=== PATIENT | male | born 1970 | race Hispanic/Latino ===

== ENCOUNTER 2020-03-23 16:57 | Observation (INO) | payer OTHER, SELFPAY ==
[2020-03-23] VITALS (8 sets, daily range): BP systolic 112–139; BP diastolic 56–82; PULSE 65–75; RESP 18–20; TEMP 36.1–37.1; O2SAT 96–99; BMI 29.7
--- NOTE | ~2020-03-23 | XR_ITS ---
EXAMINATION: XR chest 1V portable EXAM DATE: 03/23/2020 17:27 INDICATION: Left-sided chest pain, nonradiating. TECHNIQUE: Portable AP frontal chest x-ray was obtained. There is no prior study for comparison. FINDINGS: The lungs are clear. There are no pleural effusions. The cardiomediastinal silhouette is within normal limits. There is no pneumothorax suspected. The bones and soft tissues are unremarkab le. IMPRESSION: No acute cardiopulmonary findings. Reviewed, dictated and finalized at location A.
--- NOTE | 2020-03-23 17:05 | ECG_ITS ---
Measurements Intervals [place] Rate: 69 P: 44 VA: 157 QRS: -3 QRSD: 107 T: 12 QT: 359 QTc: 387 Interpretive Statements SINUS RHYTHM LOW QRS VOLTAGE IN PRECORDIAL LEADS INCOMPLETE RIGHT BUNDLE BRANCH BLOCK ST ELEVATION IN ANTEROLAT/HIGH LAT LEADS- PROBABLY EARLY REPOLARIZATION BORDERLINE ECG Electronically Signed On 03-23-2020 19:46:08 CDT by Jeremy Calhoun D.O.
[2020-03-23 17:22] LABS: Basophils Percent Auto 0.5 % (0.2-1.2); Eosinophils Absolute Auto 0.1 K/mm3 (0-0.3); Eosinophils Percent Auto 1.8 % (0-4.4); Hemoglobin 15.7 g/dL (14.0-18.0); Immature Granulocyte Absolute 0.02 K/mm3 (0.00-0.031); Immature Granulocyte Percent A 0.3 % (0-0.5); Lymphocytes Absolute Auto 2.63 K/mm3 (0.9-3.2); Lymphocytes Percent Auto 42.1 % (18.3-44.2); Mean Corpuscular HGB Conc 34.1 g/dl (32-36); Mean Corpuscular Hemoglobin 29.6 pg (26-34); Mean Corpuscular Volume 86.8 fl (80-100); Mean Platelet Volume 9.5 fl (7.4-10.4); Monocytes Absolute Auto 0.5 K/mm3 (0.1-0.6); Monocytes Percent Auto 8.6 % (2.6-8.5); Neutrophils Absolute Auto 2.9 K/mm3 (1.3-6.7); Neutrophils Percent Auto 46.7 % (45.5-73.1); Platelet Count Result 289 k/mm3 (150-375); Red Cell Distribution Width 12.9 % (11.5-14.5); White Blood Count 6.3 K/mm3 (4.5-10.0)
--- NOTE | 2020-03-23 17:26 | ED.CHESTPAIN ---
HPI - Chest Pain General Chief Complaint: Chest Pain Stated Complaint: chest pain Time Seen by Provider: 03/23/20 17:14 Source: RN notes reviewed History of Present Illness HPI narrative: Patient presents emergency department from urgent care for chest pain. Patient states this morning approximately 10 AM he was driving when he developed left-sided chest pain. The pain is described as a tightness and did not radiate associated with shortness of breath. Patient had had the pain continue went to the urgent care was given aspirin. At this time states the pain has resolved. Denies any fevers or chills abdominal pain nausea vomiting or any other symptoms. Denies any previous cardiac history Related Data Allergies Allergy/AdvReac Type Severity Reaction Status Date / Time No Known Allergies Allergy Verified 03/23/20 17:09 Review of Systems Review of Systems: Narrative: Gen.: Denies fevers or chills ENT: Denies congestion Respiratory: Denies shortness of breath or cough CV: See HPI GI: Denies abdominal pain nausea, emesis or diarrhea Musculoskeletal: Denies back pain or muscle pain Neuro: Denies numbness, tingling, weakness or focal weakness Skin: Denies rash Except as documented, all other systems reviewed and negative [facility] Past Medical History Medical History (Updated 03/23/20 @ 17:58 by Frank Price DO) Patient denies significant medical history Social History Social History (Updated 03/23/20 @ 17:27 by Frank Price DO) Smoking status: Never smoker Gender identity (if verbalized by the patient): Male Exam Narrative: Exam Narrative: APPEARANCE: No acute distress, nontoxic, resting in bed EYES: EOMI HEENT: Normocephalic, atraumatic, OMM RESPIRATORY: No respiratory distress Clear to auscultation bilaterally with no rhonchi wheezing or rales. CARDIOVASCULAR: Regular rate and rhythm without murmurs rubs or gallops. ABDOMINAL: Soft, nontender, nondistended, no rebound or guarding MUSCULOSKELETAl: Moves all extremities. No clubbing, cyanosis or edema. NEURO: Awake and alert. Following commands, speech normal, no focal deficits SKIN:: Warm, dry. No rashes lesions or abrasions PSYCHIATRIC: Normal affect/mood, Course Course Emergency Course: Discussed with Dr. Rodriguez presentation work-up. Request admission of the chest pain center at this time Discussed with patient and family results of workup and diagnosis. Discussed need for admission. Patient and family understand and agree to current treatment plan Vital Signs Vital signs: Vital Signs Temperature 98.7 F 03/23/20 17:03 Pulse Rate 75 03/23/20 17:03 Respiratory Rate 20 03/23/20 17:03 Blood Pressure 122/81 03/23/20 17:03 Pulse Oximetry 97 03/23/20 17:03 Temperature 98.7 F 03/23/20 17:03 Pulse Rate 75 03/23/20 17:03 Respiratory Rate 20 03/23/20 17:03 Blood Pressure 122/81 03/23/20 17:03 Pulse Oximetry 97 03/23/20 17:03 MDM - Chest Pain Lab Data Result diagrams: 03/23/20 17:13 03/23/20 17:13 Labs: Lab Results 03/23/20 03/23/20 03/23/20 Range/Units 17:13 17:13 17:13 WBC 6.3 (4.5-10.0) K/mm3 RBC 5.30 (4.6-6.20) M/mm3 Hgb 15.7 (14.0-18.0) g/dL Hct 46.0 (42.0-52.0) % MCV 86.8 (80-100) fl MCH 29.6 (26-34) pg MCHC 34.1 (32-36) g/dl RDW 12.9 (11.5-14.5) % Plt Count 289 (150-375) k/mm3 MPV 9.5 (7.4-10.4) fl Immature Gran % (Auto) 0.3 (0-0.5) % Neut % (Auto) 46.7 (45.5-73.1) % Lymph % (Auto) 42.1 (18.3-44.2) % [place] % (Auto) 8.6 H (2.6-8.5) % Eos % (Auto) 1.8 (0-4.4) % Baso % (Auto) 0.5 (0.2-1.2) % Lymph # (Auto) 2.63 (0.9-3.2) K/mm3 [place] # (Auto) 0.5 (0.1-0.6) K/mm3 Eos # (Auto) 0.1 (0-0.3) K/mm3 Baso # (Auto) 0.0 (0.0-0.1) K/mm3 Abs Immat Gran (auto) 0.02 (0.00-0.031) K/mm3 Absolute Neuts (auto) 2.9 (1.3-6.7) K/mm3 Absolute Nucleated RBC 0.0 (0.0-0.012) K
[2020-03-23 17:34] LABS: Anion Gap 11.4 mmol/L (7-16); Blood Urea Nitrogen 23 mg/dL (9-20); Calcium 9.1 mg/dL (8.4-10.2); Carbon Dioxide 31 mmol/L (22-30); Chloride 101 mmol/L (98-107); Estimated CRCL calculation 82 ml/min; Estimated Glomerular Filt Rate > 60; Glucose 107 mg/dL (75-110); Potassium 4.4 mmol/L (3.4-5.0); Sodium 139 mmol/L (137-145)
[2020-03-23 17:41] LABS: Prothrombin Time 12.5 Seconds (11.1-14.7)
[2020-03-23 17:43] LABS: Partial Thromboplastin Time 22.3 SECONDS (22.3-36.8)
[2020-03-23 17:46] LABS: Troponin I < 0.012 ng/mL (0.000-0.034)
[2020-03-23 18:39] LABS: Cholesterol 160 mg/dL (0-200); HDL Direct 28 mg/dL; Triglycerides 300 mg/dL (<150)
[2020-03-23 18:50] LABS: LDL Cholesterol Direct 96 mg/dL
--- NOTE | 2020-03-23 19:57 | ADMGEN ---
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 Patient/family oriented to hospital policies and general routines including ID bracelet, bed and alarms, visiting hours, pain management, procedures, bathroom and other care routines, personal items, smoking policy, room service/diet, and visiting hours. Valuables list has been completed. Information on how to activate the Rapid Response Team has been discussed. Patient/Family are encouraged to report perceived risks to care and to ask questions if they do not understand what they are told or what they should do.
[2020-03-23 20:51] LABS: Troponin I < 0.012 ng/mL (0.000-0.034)
--- NOTE | 2020-03-23 20:56 | ECG_ITS ---
Measurements Intervals [place] Rate: 73 P: 49 [place]: 154 QRS: -10 QRSD: 122 T: 18 QT: 374 QTc: 415 Interpretive Statements SINUS RHYTHM INCOMPLETE RIGHT BUNDLE BRANCH BLOCK NONSPECIFIC ST ELEVATION IN ANTEROLAT/HIGH LAT LEADS BORDERLINE ECG Electronically Signed On 03-24-2020 7:33:04 CDT by Jeremy Calhoun D.O.
[2020-03-23 23:51] LABS: Troponin I < 0.012 ng/mL (0.000-0.034)
--- NOTE | 2020-03-23 23:56 | ECG_ITS ---
Measurements Intervals [place] Rate: 69 P: 52 [place]: 157 QRS: -13 QRSD: 118 T: 13 QT: 373 QTc: 401 Interpretive Statements SINUS RHYTHM INCOMPLETE RIGHT BUNDLE BRANCH BLOCK NONSPECIFIC ST ELEVATION IN ANTEROLAT/HIGH LAT LEADS BORDERLINE ECG Electronically Signed On 03-24-2020 7:35:53 CDT by Jeremy Calhoun D.O.
[2020-03-24] VITALS (7 sets, daily range): BP systolic 113–117; BP diastolic 58–71; PULSE 58–68; RESP 18–20; TEMP 35.7–36.1; O2SAT 95–97
--- NOTE | 2020-03-24 08:17 | PM.IMHP ---
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 He denies similar symptoms in the past. His chest pain got better through the day but he decided to seek medical attention given his high risk job. No associated dyspnea or diaphoresis. No nausea or dizziness. He feels better now and chest pain has resolved. His EKG shows normal sinus rhythm and diffuse ST elevation consistent with early repolarization. Trop negative X 3. TG elevated at 300 otherwise LDL is 91. BP ormal. He is not on any medications at baseline. Review of Systems Review of Systems: All systems reviewed & are unremarkable except as noted in HPI and below Constitutional: Constitutional: Denies fatigue and Denies headache(s) Eyes: Eyes: Denies blurry vision ENT: Reports Normal hearing present and Denies headache(s) Cardiovascular: Cardiovascular: Denies diaphoresis, Denies pedal edema, Denies leg edema, Denies lightheadedness, Denies palpitations and Denies dyspnea Respiratory: Respiratory: Denies cough and Denies dyspnea Gastrointestinal: Gastrointestinal: Denies abdominal pain Musculoskeletal: Musculoskeletal: Denies back pain Neurologic: Reports Normal hearing present and Denies headache(s) Psychiatric: Psychiatric: Denies anxiety Endocrine: Endocrine: Denies fatigue and Denies palpitations PMF Past Medical History Medical History (Updated 03/24/20 @ 08:39 by Ancelmo Lara MD) Patient denies significant medical history Family History Family History (Updated 03/23/20 @ 20:06 by Gregor Santos RN) Other No significant family history Social History Social History (Updated 03/23/20 @ 17:27 by Frank Price DO) Smoking status: Never smoker Second hand tobacco smoke exposure: No Alcohol intake: never Substance use: former Substance use type: marijuana and crack/cocaine Last use: 29-30 years ago Living arrangements: with family Gender identity (if verbalized by the patient): Male Sexual Orientation (if Verbalized by the Patient): Straight or Heterosexual Spiritual care concerns: No Meds Home Medications and Allergies Home Medications Medication Instructions Recorded Confirmed Type No Home Medications 03/23/20 03/23/20 History Allergies Allergy/AdvReac Type Severity Reaction Status Date / Time No Known Allergies Allergy Verified 03/23/20 19:56 Vital Signs Vital Signs - 24 hr 03/23/20 17:03 03/23/20 18:40 03/23/20 19:31 Temperature 37.1 C 36.1 C L Pulse Rate 65 72 69 Respiratory Rate 20 19 18 Blood Pressure 122/81 120/75 139/82 Pulse Oximetry 97 96 99 03/23/20 19:37 03/23/20 19:45 03/23/20 20:00 Temperature Pulse Rate 68 69 66 Respiratory Rate 18 Blood Pressure Pulse Oximetry 99 03/23/20 22:00 03/23/20 23:42 03/24/20 00:00 Temperature 36.1 C L Pulse Rate 67 69 65 Respiratory Rate 18 Blood Pressure 112/56 L Pulse Oximetry 99 03/24/20 02:44 03/24/20 04:00 03/24/20 04:17 Temperature 36.1 C L Pulse Rate 58 L 60 62 Respiratory Rate 18 Blood Pressure 113/58 L Pulse Oximetry 97 03/24/20 05:33 Temperature Pulse Rate 64 Respiratory Rate Blood Pressure Pulse Oximetry Exam Const: General: no acute distress Eyes: Sclera: sclerae normal Neck: Neck: no JVD Carotids: no bruits Resp: Effort & Inspection: normal respiratory effort Auscultation: clear to auscultation bilaterally Cardio: Rate: regular rate and not tachycardic Rhythm: regular rhythm Heart sounds: no gallops, no murmurs and no rubs GI: GI Palp: Yes Soft to palpation and No Tenderness to palpation present (GI) Skin: General skin exam: normal color Neuro: Cranial nerves: Yes No
[2020-03-24] MEDS: ASPIRIN 81 MG CHEWABLE TABLET PO (08:38)
--- NOTE | 2020-03-24 09:16 | PM.DS ---
DS: Admitting Diagnosis Admitting Diagnosis Admitting Diagnosis: Chest pain, unspecified DS: Discharge Diagnosis Discharge Diagnosis (1) Chest pain: Code(s): R07.9 - Chest pain, unspecified Status: Acute Assessment and Plan: He ruled out for UT by troponin and EKG He has pleuritic chest pain. Although no hypoxia or SOB but with history of driving 10 hours would have to rule out possibility of PE. Will check D Dimer. If high then would check CT chest. If that work up is negative then his pain is likely musckeloskeletal. Will follow D DImer and discharge home if negative (2) Overweight: Code(s): E66.3 - Overweight Status: Acute Assessment and Plan: weight loss advised. (3) Hypertriglyceridemia: Code(s): E78.1 - Pure hyperglyceridemia Status: Acute Assessment and Plan: Weight loss and low carb diet advised. If remains elevated may need to treat. Follow up with PCP DS: Summary Time Spent with Patient Time attestation: Total time spent providing and/or coordinating discharge services: Exam Const: General: no acute distress Eyes: Sclera: sclerae normal Neck: Neck: no JVD Carotids: no bruits Resp: Effort & Inspection: normal respiratory effort Auscultation: clear to auscultation bilaterally Cardio: Rate: regular rate and not tachycardic Rhythm: regular rhythm Heart sounds: no gallops, no murmurs and no rubs Skin: General skin exam: normal color Neuro: Cranial nerves: Yes Normal hearing present Speech: normal speech Extrem: General: normal to inspection and no edema Psych: Affect: normal affect DS: Data Data Completed and Pending Labs on day of discharge: Labs from last 24 hours 03/24/20 03/23/20 03/23/20 08:44 23:01 20:19 WBC RBC Hgb Hct MCV MCH MCHC RDW Plt Count MPV Immature Gran % (Auto) Neut % (Auto) Lymph % (Auto) [place] % (Auto) Eos % (Auto) Baso % (Auto) Lymph # (Auto) [place] # (Auto) Eos # (Auto) Baso # (Auto) Abs Immat Gran (auto) Absolute Neuts (auto) Absolute Nucleated RBC Nucleated RBC % PT INR APTT D-Dimer Pending Sodium Potassium Chloride Carbon Dioxide Anion Gap BUN Creatinine Estim Creat Clear Calc Estimated GFR Glucose Calcium Troponin I < 0.012 < 0.012 Triglycerides Cholesterol LDL Cholesterol Direct HDL Direct 03/23/20 03/23/20 03/23/20 17:13 17:13 17:13 WBC 6.3 RBC 5.30 Hgb 15.7 Hct 46.0 MCV 86.8 MCH 29.6 MCHC 34.1 RDW 12.9 Plt Count 289 MPV 9.5 Immature Gran % (Auto) 0.3 Neut % (Auto) 46.7 Lymph % (Auto) 42.1 [place] % (Auto) 8.6 H Eos % (Auto) 1.8 Baso % (Auto) 0.5 Lymph # (Auto) 2.63 [place] # (Auto) 0.5 Eos # (Auto) 0.1 Baso # (Auto) 0.0 Abs Immat Gran (auto) 0.02 Absolute Neuts (auto) 2.9 Absolute Nucleated RBC 0.0 Nucleated RBC % 0.0 PT 12.5 INR 1.0 APTT 22.3 D-Dimer Sodium 139 Potassium 4.4 Chloride 101 Carbon Dioxide 31 H Anion Gap 11.4 BUN 23 H Creatinine 1.00 Estim Creat Clear Calc 82 Estimated GFR > 60 Glucose 107 Calcium 9.1 Troponin I < 0.012 Triglycerides Cholesterol LDL Cholesterol Direct HDL Direct 03/23/20 17:12 WBC RBC Hgb Hct MCV MCH MCHC RDW Plt Count MPV Immature Gran % (Auto) Neut % (Auto) Lymph % (Auto) [place] % (Auto) Eos % (Auto) Baso % (Auto) Lymph # (Auto) [place] # (Auto) Eos # (Auto) Baso # (Auto) Abs Immat Gran (auto) Absolute Neuts (auto) Absolute Nucleated RBC Nucleated RBC % PT INR APTT D-Dimer Sodium Potassium Chloride Carbon Dioxide Anion Gap BUN Creatinine Estim Creat Clear Calc Estimated GFR Glucose Calcium Troponin I Triglycerides 300 H Cholesterol 160 LDL Cholesterol Direct 96 HDL Direct 28
[2020-03-24 09:30] LABS: D Dimer < 0.22 ug/mL (<0.48)
== END 2020-03-24 10:00 | disposition home or self-care (01) ==
LOC: ANHED 18:07 → ANHIMU 03-24 02:47
PROVIDERS: Admitting Provider Specialist; Emergency Provider Emergency Medicine; Visit Provider Internal Medicine
DX: R07.9 Chest pain, unspecified (principal); R06.02 Shortness of breath; E78.1 Pure hyperglyceridemia; E66.3 Overweight; Z68.29 Body mass index [BMI] 29.0-29.9, adult
CPT/HCPCS: 36415; 71045; 80048; 80061; 84484; 85025; 85380; 85610; 85730; 93005; 99285; A9270; G0378